=== PATIENT | female | born 1985 | race Caucasian/White ===

== ENCOUNTER 2016-09-13 02:24 | Outpatient (CLI) | payer MEDICAID ==
[2016-09-13 02:56] LABS: APPEARANCE CLEAR (CLEAR); BILIRUBIN NEGATIVE (NEGATIVE); COLOR YELLOW (YELLOW); GLUCOSE NEGATIVE (NEGATIVE); KETONE NEGATIVE (NEGATIVE); LEUKOCYTE ESTERASE NEGATIVE (NEGATIVE); NITRITE NEGATIVE (NEGATIVE); PROTEIN NEGATIVE (NEGATIVE); SPECIFIC GRAVITY 1.015 (1.005-1.020); UROBILINOGEN NORMAL (NORMAL)
[2016-09-13 03:05] LABS: UDS - AMPHET NEGATIVE QUAL (NEGATIVE); UDS - BARB NEGATIVE QUAL (NEGATIVE); UDS - BENZO NEGATIVE QUAL (NEGATIVE); UDS - COCAINE NEGATIVE QUAL (NEGATIVE); UDS - METH NEGATIVE QUAL (NEGATIVE); UDS - OPIATE NEGATIVE QUAL (NEGATIVE); UDS - PCP NEGATIVE QUAL (NEGATIVE); UDS - THC NEGATIVE QUAL (NEGATIVE)
[2016-10-07 10:48] VITALS: BMI 33.1
== END 2016-09-13 06:02 | disposition home or self-care (01) ==
LOC: D.LDO 02:24
PROVIDERS: Obstetrics & Gynecology
DX: O36.8130 Decreased fetal movements, third trimester, not applicable or unspecified (principal); R10.30 Lower abdominal pain, unspecified

== ENCOUNTER 2016-10-07 06:14 | Inpatient (IN) | payer MEDICAID ==
[2016-10-07] VITALS (12 sets, daily range): BP systolic 107–136; BP diastolic 62–85; Ht 157.5 cm; Wt 82.1 kg
[~2016-10-07] VITALS: Ht 157.5 cm; Wt 82.1 kg
[2016-10-07 06:27] LABS: HEMATOCRIT 32.4 % (36.0-48.0); HEMOGLOBIN 10.2 g/dL (12-16); MCH 26.6 pg (26.0-34.0); MCHC 31.5 g/dL (31.0-37.0); MCV 84.6 fL (80.0-100.0); MEAN PLATELET VOLUME 11.1 fL (7.4-10.4); RBC 3.83 10x6/uL (4.00-5.40); RDW 16.4 % (11.5-14.5); WBC 11.3 10x3/uL (4.8-10.8)
[2016-10-07] MEDS ORDERED: FERROUS SULFAT325 MG PO (06:37)
[2016-10-07] MEDS ORDERED: PRENATAL COMPLE1 TAB PO (06:38)
[2016-10-07] MEDS ORDERED: FLAGYL250 MG PO (06:38)
--- NOTE | 2016-10-07 09:15 | NUR ---
PT RECEIVED FROM RECOVERY. SHE IS AWAKE AND ALERT. STATES PAIN IS ABOUT A 7/10. IV NOTED LEFT FOREARM PATENT WITH LR INFUSING AT 125 CC/HR. PHILLIPS CATH INTACT. SCD'S ON ON HER LE AND THEY WERE INITIATED. GEN- AWAKE AND ALERT. LUNGS- CLEAR. HEART- RRR. ABD SOFT WITH TENDERNESS. BIKINI LINE INCISION WITH BULKY DRESSING. DRESSING CLEAN DRY AND INTACT. SMALL LOCIA RUBRA ON PAULY PAD. EXT- WARM AND DRY AND PULSES PALBABLE BOTH FEET. BED IS LOW, SIDE RAILS UP X 2 AND CALL LIGHT IN REACH.
[2016-10-07 10:07] LABS: APPEARANCE CLEAR (CLEAR); BILIRUBIN NEGATIVE (NEGATIVE); COLOR YELLOW (YELLOW); GLUCOSE NEGATIVE (NEGATIVE); KETONE NEGATIVE (NEGATIVE); LEUKOCYTE ESTERASE TRACE (NEGATIVE); NITRITE NEGATIVE (NEGATIVE); PROTEIN NEGATIVE (NEGATIVE); SPECIFIC GRAVITY 1.005 (1.005-1.020); UROBILINOGEN NORMAL (NORMAL)
[2016-10-07 10:08] LABS: BACTERIA FEW /hpf (NONE SEEN); EPITHELIAL CELLS 0-5 /hpf (0-5); RED CELLS - URINE RARE /hpf (0-5); WHITE CELLS - URINE OCC /hpf (0-5); YEAST <1+ /hpf (NONE SEEN)
--- NOTE | 2016-10-07 11:01 | NUR ---
PT IS RESTING IN BED. SHE STATES THAT HER PAIN IS NOT MUCH BETTER. HER MOTHER IS HERE TO VISIT. FOB AND BABY ARE [place] AT BEDSIDE. BED IS LOW, CALL LIGHT IN REACH AND SIDE RAILS UP X 2.
--- NOTE | 2016-10-07 12:21 | NUR ---
PT C/O PAIN STILL BEING A 5-6. TORADOL GIVEN IV .
--- NOTE | 2016-10-07 12:55 | OP ---
PATIENT NAME: GIL MORGAN MEDICAL RECORD: [id number] :83 LOCATION:[id number] ADMISSION DATE:10/07/16 SURGEON: HILDA YI MD DATE OF OPERATION: 10/07/2016 PREOPERATIVE DIAGNOSES: Previous section times 4, previous tubal ligation, term gestation. POSTOPERATIVE DIAGNOSES: Previous section times 4, previous tubal ligation, term gestation. PROCEDURE: Repeat low transverse section. SURGEON: Hilda Yi MD. ANESTHESIA: Spinal. FINDINGS: An 8 pound 9 ounce male in cephalic presentation with 8 and 8 Apgars. Unable to identify the distal end of the right tube, the left tube with a normal appearance. ESTIMATED BLOOD LOSS: 800 cc. COMPLICATIONS OF SURGERY: None. OPERATIVE NOTE: The patient was taken to the OR and under adequate spinal anesthesia, prepped and draped in the usual manner for abdominal procedures. A transverse incision was made in the lower abdomen and extended in a Pfannenstiel manner through subcutaneous tissue and fascia, peritoneum elevated and incised, this incision extended from the symphysis pubis to within 6 cm of the umbilicus, avoiding the bladder and abdominal organs. Adhesions were encountered from the lower anterior wall of the uterus to the peritoneum and these were carefully lysed with blunt and sharp dissection exposing the lower uterine segment, which had a large window. A transverse incision was then made in the lower uterine segment and the was delivered without difficulty through the uteroabdominal incision. The infant was thoroughly suctioned, cord doubly clamped and ligated and the infant handed to waiting nursery personnel. The fundal placenta was removed manually without difficulty. Also to be sent to pathology. The lower uterine segment was then reapproximated in 2 layers, first layer running interlocking #1 chromic, second layer of running #1 chromic. Pelvis and abdomen were copiously irrigated and suctioned and inspection of the tubes revealed the above listed findings. Hemostasis was confirmed. Sponge and needle counts were correct. Fascial layer closed in a running noninterlocking #1 PDS loop suture. Skin incision closed using subcuticular 2-0 plain gut suture. Dermabond was applied. Steri-Strip dressing was applied, a pressure dressing was applied and the patient went to recovery area in good condition. TRANSINT:[id number] Voice Confirmation ID: [id number] DOCUMENT ID: [id number] OPERATIVE REPORT [id number] GIL MORGAN BRENDA MD at 1255 CC: [id number] DICTATION DATE: 10/07/16904 SAND MIXER OPERATOR: 10/07/16 1238 ADM IN [place] [id number] [place] [id number]
--- NOTE | 2016-10-07 13:58 | NUR ---
PT IS SITTING UP IN BED, CHANGING BABY'S DIAPER. SHE STATES THAT SHE IS FEELING BETTER. PHILLIPS INTACT WITH 325 CC EHSAN COLORED URINE. IV PATENT. SCD'S INTACT. BED IS LOW, SIDE RAILS UP X 2 AND CALL LIGHT IN REACH.
--- NOTE | 2016-10-07 14:30 | NUR ---
I WAS CALLED TO PTS ROOM. PT C/O LEFT ARM BEING SORE AND RED AROUND IV SITE. IV WAS INFILTRATED. REDNESS AND SOME SWELLING NOTED AROUND SITE. IV WAS REMOVED. TIP INTACT. TONY PERKINS FROM L& D STARTED NEW IV LEFT WRIST.
--- NOTE | 2016-10-07 14:45 | NUR ---
PIV RESITED TO LEFT WRIST WITH 20 GAUGE CATHELON X 1 VENIPUNCTURE. SITE CLEAR. PT EVANS WELL.
--- NOTE | 2016-10-07 15:35 | NUR ---
PT IS LYING IN BED. HOLDING BABY. BABY HANDED TO FAMILY MEMBER TO HOLD AND CHECKED PTS PADS. MODERATE LOCHIA RUBRA NOTED ON PADS. PT CLEANED UP AND NEW PADS APPLIED. BED IS LOW, CALL LIGHT IN REACH. SIDE RAILS UP X 2.
--- NOTE | 2016-10-07 19:50 | NUR ---
PT RECEIVED SITTING UP IN BED. VSS. PT RATES PAIN 5/10. IV NOTED TO LEFT WRIST. INFUSING NS WITH 20 UNITS OF PIT @ 125 CC/HR. PATENT. DRESSING CDI. HEART RRR. LUNG SOUNDS CLEAR BILATERALLY. BOWEL SOUNDS ACTIVE X4 QUAD. FFM. MODERATE LOCHIA RUBRA NOTED TO PAULY PAD. LOW TRANSVERSE INCISION WITH BULKY DRESSING NOTED TO ABDOMEN. DRESSING CDI. SCDS NOTED TO BLE. PHILLIPS ATTACHED TO RIGHT THIGH. DRAINING EHSAN URINE. PT REQUESTS ICE. DENIES OTHER NEEDS AT THIS TIME. BED LOW. PHONE AND CALL LIGHT IN REACH. SRX2.
--- NOTE | 2016-10-07 21:27 | NUR ---
PT SITTING UP IN BED AT THIS TIME. FOB AT BEDSIDE. DENIES NEEDS. BED LOW. PHONE AND CALL LIGHT IN REACH. SRX2.
--- NOTE | 2016-10-07 22:20 | NUR ---
PT LYING IN BED WITH AT BEDSIDE. DENIES NEEDS AT THIS TIME. BED LOW. PHONE AND CALL LIGHT IN REACH. SRX2.
--- NOTE | 2016-10-07 23:10 | NUR ---
PT AT THIS TIME. DENIES NEEDS. BED LOW. PHONE AND CALL LIT IN REACH. SRX2.
[2016-10-08] VITALS: BP 119/68
--- NOTE | 2016-10-08 | NUR ---
PT LYING IN BED RESTING QUIETLY WITH EYES CLOSED. AROUSED EASILY. LIGHT LOCHIA RUBRA NOTED TO PAULY PAD. MODERATE LOCHIA RUBRA NOTED TO BLUE PAD UNDER PT. PLACED CLEAN PAD UNDER PT. PT REQUESTS SODA AT THIS TIME. EMPTIED 300 CC FROM PHILLIPS. PT DENIES OTHER NEEDS AT THIS TIME. BED LOW. PHONE AND CALL LIGHT IN REACH. SRX2.
--- NOTE | 2016-10-08 01:46 | NUR ---
PT RESTING QUIETLY WITH EYES CLOSED. AROUSED EASILY. CHANGED IV FLUIDS. PT DENIES NEEDS AT THIS TIME. BED LOW. PHONE AND CALL LIGHT IN REACH. SRX2.
--- NOTE | 2016-10-08 02:30 | NUR ---
PT AT THIS TIME. NO NEEDS NOTED.
--- NOTE | 2016-10-08 03:00 | NUR ---
PT BOX ICER LIGHT. REQUESTS BLANKET AT THIS TIME. DENIES OTHER NEEDS. BED LOW. PHONE AND CALL LIGHT IN REACH. SRX2.
--- NOTE | 2016-10-08 04:05 | NUR ---
PT SITTING UP IN BED BABY, INFORMED PT THAT WE WILL BE BACK IN A LITTLE WHILE TO DO VS AND PAULY CARE, PT VERBALIZES UNDERSTANDING, DENIES NEEDS AT THIS TIME, FOB ASLEEP IN RECLINER
[2016-10-08 04:30] VITALS: BP 100/61
--- NOTE | 2016-10-08 04:30 | NUR ---
NEW VIAL OF DEMEROL TO VEGETABLE CANNER, VS OBTAINED, I&O'S COLLECTED, PAULY CARE DONE WITH WET WARM WASH CLOTHS, LIGHT BLEEDING NOTED WITH NO CLOTS, BLUE CHUX AND PAULY PAD CHANGED, SCD'S CONTINUE AND WORKING PROPERLY, BABY TO NSY VIA OPEN CRIB CART PER THIS RN, PT DENIES FURTHER NEEDS, FOB ASLEEP IN RECLINER
--- NOTE | 2016-10-08 05:35 | NUR ---
BABY TO ROOM VIA OPEN CRIB CART PER THIS RN, BANDS CHECKED, PT DENIES NEEDS AT THIS TIME
[2016-10-08 07:25] LABS: RAPID PLASMA REAGIN Non Reactive (Non Reactive)
[2016-10-08 07:35] VITALS: BP 118/70
--- NOTE | 2016-10-08 07:45 | NUR ---
PT WAS RECEIVED THIS AM LYING IN BED. SHE STATES THAT HER PAIN LEVEL IS ABOUT A 5. BABY IS AT BEDSIDE. GEN- AWAKE AND ALERT. LUNGS- CLEAR. HEART- RRR. ABD- SOFT WITH TENDERNESS. BS+ BULKY DRESSING NOTED OVER BIKINI LINE INCISION. DRESSING IS CLEAN AND DRY. PAULY PAD WIT SMALL LOCIA RUBRA. EXT- WITH SCD'S NOTED. PEDAL PULSES PALPABLE. IV INTACT LEFT WRIST. PATENT. NS WITH PIT INFUSING @ 125 CC/HR. DEMEROL WINDOW SHADE RING COVERER INTACT. BED IS LOW, CALL LIGHT IN REACH AND SIDE RAILS UP X 2.
[2016-10-08 07:59] LABS: HEMATOCRIT 26.2 % (36.0-48.0); HEMOGLOBIN 8.3 g/dL (12-16); MCH 26.7 pg (26.0-34.0); MCHC 31.7 g/dL (31.0-37.0); MCV 84.2 fL (80.0-100.0); MEAN PLATELET VOLUME 10.3 fL (7.4-10.4); RBC 3.11 10x6/uL (4.00-5.40); RDW 16.5 % (11.5-14.5)
--- NOTE | 2016-10-08 08:52 | NUR ---
Shima Mcgill 10/08/16 LE@ 8:15 S: Patient states she is sore, delivered by , limited on how she can move because of the wires, they told her they will take them off soon. This will help her with being able to feed more. O: Patient sitting up in bed, light off, in patient arms, FOB sleeping in chair. Asked how is any problems or concerns? Patient states it's fine, infant was just eating but then he stopped. Patient appears to be really uncomfortable, offered to help reposition , she declined, and attempted to latch in on the right breast. is in a cradle position, unable to verify how or if infant is latched due to patient putting a cover over her. If you decide you would like any help with , I will be more then happy to assist. Explain does take time and patience in the beginning, explain feeding cues, feed infant on demand, this will help with establishing her milk supply. Making sure infant has a great latch is important, turn infant tummy to tummy, nose opposite of nipple, gently support head, he will be able to self latch. Asked if she had any questions or concerns, patient declined. Patient does get WIC, make recertification appointment, provided date and time. Will follow up. A: Mom appears to be uncomfortable, tired. P: Promote exclusively during hospital visit. María Wise, CLC
--- NOTE | 2016-10-08 09:15 | NUR ---
PT C/O INCISIONAL PAIN OF "5" ON 0-10 PAIN SCALE. TORADOL 30 MG GIVEN SIVP OVER 2 MINUTES. PT INSTRUCTED ON MED. VERBALIZES UNDERSTANDING. PHILLIPS DC'D WITH 450 ML OF DARK, YELLOW URINE NOTED. PT EVANS WELL. INSTRUCTED TO CALL NURSE WHEN FEELS URGE TO VOID. VERBALIZES UNDERSTANDING.
--- NOTE | 2016-10-08 10:23 | NUR ---
PT SITTING UP IN BED. PIV CONVERTED TO SALINE LOCK. PT OOB AND AMB TO BR. VOIDS 200 ML OF BLOOD-TINGED URINE. PERICARE DONE PER PT. PANTIES AND PAD ON. GOWN CHANGED. PT AMBULATES BACK TO BED. EVANS ACTIVITY WELL.
[2016-10-08 11:53] VITALS: BP 124/76
--- NOTE | 2016-10-08 12:22 | NUR ---
PT IS UP AMBULATING IN HALLWAYS WITH HER . SHE ASKED TO WALK WITH HIM TO THE [place].
--- NOTE | 2016-10-08 13:35 | NUR ---
PT C/O INCISIONAL PAIN OF "6" ON 0-10 PAIN SCALE. PERCOCET 5/325 GIVEN PO ORDERED. PT INSTRUCTED ON MED. VERBALIZES UNDERSTANDING.
--- NOTE | 2016-10-08 14:45 | NUR ---
PT IS RESTING IN BED. OFFERS NO COMPLAINTS AT THIS TIME. BED IS LOW, SIDE RAILS UP X 2 AND CALL LIGHT IN REACH.
--- NOTE | 2016-10-08 16:00 | NUR ---
REMOVED PTS DRESSING FROM BIKINI LINE INCISION. INCISION WITH STERI STRIPS. CLEAN , DRY AND INTACT. INSTRUCTED PT ON INCISION CARE. PLACED PAULY PAD ACROSS INCISION.
--- NOTE | 2016-10-08 16:32 | NUR ---
PT IS UP AMBULATING IN THE HALLWAY WITH HER MOM.
--- NOTE | 2016-10-08 17:00 | NUR ---
PT RETURNED FROM AMBULATING. STATES THAT SHE WOULD LIKE TO HAVE PAIN MED. STATES HER PAIN IS ABOUT A 7. HER MOTHER AND BABY ARE AT BEDSIDE. SHE STATES THAT SHE HAS VOIDED ABOUT 7 TIMES. SHE IS BACK IN BED AND PAIN MED GIVEN. BED IS LOW, CALL LIGHT IS IN REACH AND SIDE RAILS UP X 2.
--- NOTE | 2016-10-08 17:51 | NUR ---
PT REQUESTED SOMETHING FOR INDIGESTION. NOTHING HAS BEEN ORDERED.
--- NOTE | 2016-10-08 17:52 | NUR ---
PT IS EATING DINNER. STATES HER MOTHER WILL BRING HER SOME ROLAIDS OR SOMETHING. SHE OFFERS NO COMPLAINTS. SHE IS VOIDING WITHOUT DIFFICULTY. SHE HAS BEEN AMBULATING. HER BED IS LOW, SIDE RAILS UP X 2 AND CALL LIGHT IN REACH.
[2016-10-08 19:56] VITALS: BP 125/83
--- NOTE | 2016-10-08 19:56 | NUR ---
PT RECEIVED LYING IN BED AWAKE AND ALERT WITH ON CHEST. VSS. PT RATES PAIN 7/10. S/L NOTED TO LEFT WRIST. DRESSING CDI. HEART RRR. LUNG SOUNDS CLEAR BILATERALLY. BOWEL SOUNDS ACTIVE X4 QUADRENTS. SCDS NOTED TO BLE. FFM. SCANT LOCHIA RUBRA NOTED TO PAULY PAD. LOW TRANSVERSE INCISION NOTED TO ABDOMEN WITH STERI STRIPS. CDI. PT STATES BLEEDING HAS BEEN MODERATE WITH QUARTER SIZE CLOTS. PT DENIES NEEDS AT THIS TIME. BED LOW. PHONE AND CALL LIGHT IN REACH. SRX2.
--- NOTE | 2016-10-08 20:50 | NUR ---
PT SITTING UP IN BED WITH AND FOB AT BEDSIDE. DENIES NEEDS AT THIS TIME. BED LOW. PHONE AND CALL LIGHT IN REACH. SRX2
--- NOTE | 2016-10-08 21:29 | NUR ---
PT REQUESTS MEDICATION FOR PAIN 03/25 AT THIS TIME. ADMINISTERED PERCOCET PO PER ORDERS. PT DENIES OTHER NEEDS. BED LOW. PHONE AND CALL LIGHT IN REACH. SRX2.
--- NOTE | 2016-10-08 22:21 | NUR ---
REASSESSED PTS PAIN. RATES PAIN 04/25. ADMINISTERED IBUPROFEN PO PER ORDERS. PT DENIES NEEDS AT THIS TIME. BED LOW. PHONE AND CALL LIGHT IN REACH. SRX2.
--- NOTE | 2016-10-08 23:07 | NUR ---
REASSESSED PT'S PAIN. RATES PAIN 02/22. STATES IT HAS IMPROVED. DENIES NEEDS AT THIS TIME.
--- NOTE | 2016-10-08 23:53 | NUR ---
PT SITTING UP IN BED WITH ON CHEST. FOB AT BEDSIDE. VSS. REQUESTS PRUNE JUICE AT THIS TIME. DENIES OTHER NEEDS AT THIS TIME. BED LOW. PHONE AND CALL LIGHT IN REACH. SRX2.
--- NOTE | 2016-10-09 01:50 | NUR ---
PT SITTING UP IN BED WITH ON CHEST. FOB AT BEDSIDE. REQUESTS PAIN MEDICATION FOR PAIN 5/10 AT THIS TIME. ADMINISTERED PERCOCET PO PER ORDERS. PT DENIES OTHER NEEDS. BED LOW. PHONE AND CALL LIGHT IN REACH. SRX2.
[2016-10-09 03:40] VITALS: BP 153/84
--- NOTE | 2016-10-09 03:40 | NUR ---
PT SITTING UP IN BED WITH ON CHEST. VSS. PT RATES PAIN 5/10. DENIES NEEDS AT THIS TIME. BED LOW. PHONE AND CALL LIGHT IN REACH. SRX2.
--- NOTE | 2016-10-09 05:00 | NUR ---
PT RESTING QUIETLY AT THIS TIME WITH EYES CLOSED. RESPIRATIONS EVEN NON-LABORED. NO ACUTE DISTRESS NOTED AT THIS TIME. BED LOW. PHONE AND CALL LIGHT IN REACH. SRX2.
--- NOTE | 2016-10-09 06:06 | NUR ---
PT WELDING EQUIPMENT REPAIRER SUPERVISOR LIGHT. REQUESTS MEDICATION FOR PAIN 03/25. ADMINISTERED PERCOCET PO PER ORDERS. PT DENIES OTHER NEEDS.
--- NOTE | 2016-10-09 07:10 | NUR ---
AM ASSESSMENT COMPLETE AT THIS TIME. SEE ASSESSMENT FORM. NO SIGNS OF DISTRESS NOTED AT THIS TIME. SIGNIFICANT OTHER AT BEDSIDE.
[2016-10-09 07:15] VITALS: BP 127/73
--- NOTE | 2016-10-09 08:30 | NUR ---
PATIENT RESTING QUIETLY IN ROOM. NO SIGNS OF DISTRESS NOTED.
--- NOTE | 2016-10-09 09:13 | NUR ---
PT SITTING IN BED TALKING TO FAMILY AT BEDSIDE. PROVIDED SODA AND ICE. STATES NO NEEDS AT THIS TIME.
--- NOTE | 2016-10-09 10:00 | NUR ---
PATIENT RESTING QUIETLY IN ROOM. NO SIGNS OF DISTRESS NOTED.
--- NOTE | 2016-10-09 10:21 | NUR ---
PT AMBULATING UNIT WITH FEMALE FAMILY MEMBER.
--- NOTE | 2016-10-09 11:00 | NUR ---
Pt just back to room from walking. Pt wanting SL out. breast feeding to left breast at this time. Pt rates pain an 8 and request pain medication. Talked to patient about rooming in if infant does not get discharged. RX Motring 600 mg and Percocet 5 given to patient to fill. Verblized her understanding.
--- NOTE | 2016-10-09 11:15 | NUR ---
Medicated for pain per request. remains at breast.
--- NOTE | 2016-10-09 11:21 | NUR ---
SL D'cd with tip intact. No active bleeding. Site clear. Provided towels for shower.
--- NOTE | 2016-10-09 13:27 | NUR ---
Pt up walking in room, states pain has lightened up. Just showered and brushing hair at this time.
[2016-10-09 14:10] VITALS: BP 135/78
--- NOTE | 2016-10-09 14:20 | NUR ---
PATIENT RESTING IN ROOM QUIETLY. VS DONE AT THIS TIME. NO SIGNS OF DISTRESS NOTED.
--- NOTE | 2016-10-09 14:23 | NUR ---
PROVIDED FRESH ICEWATER REQUESTED AND BREAST PADS FOR BREAST LEAKAGE.
--- NOTE | 2016-10-09 15:19 | NUR ---
ADMINISTERED PAIN MEDICATION REQUESTED AND ORDERED. PT RATES PAIN LEVEL 7 ON NUMERIC SCALE. SHE IS SITTING IN BED WITH FEMALE AT BEDSIDE AND THEY ARE EATING [place] [employer]RIED CHICKEN. STATES NO FURTHER NEEDS AT THIS TIME.
--- NOTE | 2016-10-09 16:00 | NUR ---
PATIENT RESTING IN ROOM QUIETLY. NO SIGNS OF DISTRESS NOTED.
[2016-10-09] MEDS ORDERED: PERCOCET 5-3251 TAB PO (16:26)
[2016-10-09] MEDS ORDERED: IBUPROFEN600 MG PO (16:26)
--- NOTE | 2016-10-09 17:23 | NUR ---
REVIEWED DISCHARGE PAPERWORK. PROVIDED APPOINTMENT CARD. WENT OVER INSTRUCTIONS AND PT STATES UNDERSTANDING. ALL PERSONAL ITEMS REMOVED FROM ROOM. PT STATES THAT SHE IS EXCITED TO GO HOME. STATES NO FURTHER NEEDS AT THIS TIME. WILL CALL WHEN SHE IS READY TO BE WHEELED OUT.
--- NOTE | 2016-10-09 18:10 | NUR ---
PT DISCHARGED VIA WHEELCHAIR. FOB CARRYING WITH FEMALE FAMILY MEMBER WALKING BESIDE.
== END 2016-10-09 18:10 | disposition home or self-care (01) | DRG 766 ==
LOC: D.LD 06:14 → EDSTATUS 07:30 → D.LD 07:30 → D.OPS 07:30 → D.WS 09:29
PROVIDERS: ADMIT Obstetrics & Gynecology
PROC: 10D00Z1 Extraction of Products of Conception, Low, Open Approach (ICD-10-PCS; principal; 2016-10-07 07:30)
DX: O34.219 Maternal care for unspecified type scar from previous cesarean delivery (principal); Z3A.39 39 weeks gestation of pregnancy; Z37.0 Single live birth; Z98.51 Tubal ligation status